=== PATIENT | male | born 1945 | race Caucasian/White ===

== ENCOUNTER → 2018-04-17 18:01 | Outpatient (REF) | payer SELFPAY ==
[2018-04-17 19:08] LABS: T7 (Free Thyroxine Index) 3.84 (1.65-3.89); Triiodothryronine T3 Uptake 34.9 % (23.5-40.5)
== END ==
LOC: LAB 18:01
PROVIDERS: Family Provider Internal Medicine; PCP Family Medicine Geriatric Medicine; Visit Provider Family Medicine Geriatric Medicine
DX: E89.0 Postprocedural hypothyroidism (principal)
CPT/HCPCS: 36415; 84436; 84443; 84479